=== PATIENT | female | born 1955 | race Caucasian/White ===

== ENCOUNTER → 2016-08-09 | Outpatient (CLI) | payer OTHER ==
[~2016-08-09] MED LIST: AMOX TR-K CLV 81 TA1 PO; K-DUR10 MEQ PO; LASIX20 MG PO; NORVASC10 MG PO; OMEPRAZOLE20 M1 PO; ZYRTEC PO
--- NOTE | ~2016-08-09 | CT57 ---
[facility] A Service of [facility] RADIOLOGY TEXT RESULTS PATIENT: BRYCE LARSEN LOCATION: [facility] : 59 UNIT #: [id number] AGE: [address]: Bishop Cheek MD SEX: F ORDER DR: [id number] [facility]. [place], [place] [address] [id number] O MR#: [id number] Acc #: [id number] NAME: BRYCE LARSEN : 1955 SEX: F STUDY DATE/TIME: 08/09/2016 15:19 UNIT: [facility] ROOM: STUDY DESCRIPTION: CT Chest Wo Cont Attending Physician: Bishop Cheek M.D. Referring Physician: Bishop Cheek M.D. Ordering Physician: Bishop Cheek M.D. Primary Care Physician: Linsey Delgado M.D. MEDICAL IMAGING REPORT This report is preliminary unless electronic signature is present EXAM CT of the chest without contrast INDICATIONS Followup aortic aneurysm, compared with 03/09/[address] of the chest performed without contrast. Coronal and sagittal reformatted images obtained. The CT exam was performed with one or more of the following radiation dose reduction techniques: automatic exposure control, adjustment of mA and/or kV according to patient size, and iterative reconstruction. FINDINGS Ascending aortic aneurysm measures about 4.4 cm in greatest dimension. This is probably not significantly changed from the prior study although the prior study had a significant amount of motion artifact and exact measurements are difficult. The descending thoracic aorta is within normal limits. Coronary artery calcifications. Stable thyroid nodule. No lymphadenopathy or pleural effusion. Minimal linear scar or atelectasis in the lung bases. Limited imaging in the upper abdomen demonstrates postsurgical change of the stomach. Cholecystectomy. Hyperdense left renal cysts. The bone windows are unremarkable. IMPRESSION Stable ascending aortic aneurysm Dictated by... Tal Ramirez M.D. [facility] A Service of [facility] RADIOLOGY TEXT RESULTS PATIENT: BRYCE LARSEN LOCATION: [facility] : 59 UNIT #: [id number] AGE: [address]: Bishop Cheek MD SEX: F ORDER DR: THIS IS AN ELECTRONICALLY VERIFIED REPORT Tal Ramirez M.D. at 08/12/2016 9:00 AM Cristel TD: 08/10/2016 09:14 JOB #: [id number] MEDICAL IMAGING REPORT Page 1 of 1 COPY
== END | disposition home or self-care (01) ==
LOC: CCAT 14:44
DX: I71.2 Thoracic aortic aneurysm, without rupture (principal)
CPT/HCPCS: 71250

== ENCOUNTER → 2016-09-03 | Outpatient (CLI) | payer OTHER ==
--- NOTE | ~2016-09-03 | MY11 ---
[facility] A Service of [facility] RADIOLOGY TEXT RESULTS PATIENT: BRYCE LARSEN LOCATION: [facility] : 59 UNIT #: [id number] AGE: [address]: Linsey Delgado MD SEX: F ORDER DR: [id number] [address] [address] [id number] O MR#: [id number] Acc #: [id number] NAME: BRYCE LARSEN : 1955 SEX: F STUDY DATE/TIME: 09/03/2016 9:22 UNIT: [facility] ROOM: STUDY DESCRIPTION: MY Mammogram Screening Dig José Luis Attending Physician: Linsey Delgado M.D. Referring Physician: Linsey Delgado M.D. Ordering Physician: Linsey Delgado M.D. Primary Care Physician: Linsey Delgado M.D. MEDICAL IMAGING REPORT This report is preliminary unless electronic signature is present. EXAM Bilateral digital screening mammogram with CAD, 09/03/2016. INDICATION 61-year-old female for routine screening. No reported problems. No personal or family history of breast cancer. No surgeries. TECHNIQUE CC and MLO views of the breast were obtained and reviewed with an FDA-approved CAD device. COMPARISONS 08/08/2015, 04/12/2014, 03/30/2013 FINDINGS Breast parenchyma is composed of scattered fibroglandular densities. The pattern is unchanged. There is no new dominant nodule, mass, or suspicious cluster of microcalcifications. Scattered benign calcifications are present. IMPRESSION Negative screening mammogram. 1 year followup recommended. Patients over the age of 40 are entered into a reminder system with target due date for the next mammogram. A result letter will also be sent to the patient. BIRADS: 1 Negative Dictated by... [facility] A Service [facility] RADIOLOGY TEXT RESULTS PATIENT: BRYCE LARSEN LOCATION: [facility] : 59 UNIT #: [id number] AGE: [address]: Linsey Delgado MD SEX: F ORDER DR: Chavo Nick M.D. THIS IS AN ELECTRONICALLY VERIFIED REPORT Chavo Nick M.D. at 09/03/2016 5:19 PM MULUGETA/henrique TD: 09/03/2016 10:11 JOB #: [id number] MEDICAL IMAGING REPORT Page 1 of 1
== END | disposition home or self-care (01) ==
LOC: SMAM 08:45
DX: Z12.31 Encounter for screening mammogram for malignant neoplasm of breast (principal)
CPT/HCPCS: G0202